=== PATIENT | female | born 1945 | race Caucasian/White ===

== ENCOUNTER → 2016-08-28 | Outpatient (CLI) | payer OTHER ==
[~2016-08-28] MED LIST: ASPI400T11 PO; CHOL100010 PO; CYAN10004 PO; OMEP20CA9 PO
--- NOTE | 2016-08-29 13:03 | MAMMOGRAPHY REPORT ---
BILATERAL DIGITAL SCREENING MAMMOGRAM WITH CAD: 08/28/2016 CLINICAL HISTORY: Routine screening. Patient has no complaints. TECHNIQUE: Bilateral CC and MLO views were obtained. Current study was also evaluated with a Comput er Aided Detection (CAD) system. COMPARISON: Comparison is made to exams dated: 08/23/2015 mammogram, 07/20/2014 mammogram, 07/17/2013 m ammogram, 12/14/2010 mammogram, 10/21/2009 mammogram - [facility], and 11/26/2007. BREAST COMPOSITION: There are scattered areas of fibroglandular density in both breasts. FINDINGS: There are scattered benign coarse calcifications in the breasts. A focal asymmetry in the upper outer quadrant of the right breast is unchanged mammographically dating back to at least 11/07, likely representing the patient's baseline. No new suspicious mass, architectural distortio n or cluster of microcalcifications is seen. IMPRESSION: ACR BI-RADS CATEGORY 1: NEGATIVE There is no mammographic evidence of malignancy. A 1 year screening mammogram is recommended. The p atient will receive written notification of the results. Approximately 10% of breast cancers are not detected with mammography. A negative mammographic repor t should not delay biopsy if a clinically suggestive mass is present. Rayna Keita M.D. ay/:08/28/2016 15:38:43 Calendar Control Clerk Blood Bank: Citlalli GARRETT(Fawad)(Juan R)(BD), [facility] letter sent: Normal /2 BI-RADS Code: ACR BI-RADS Category 1: Negative
== END | disposition home or self-care (01) ==
LOC: C.MAMM 13:08
PROVIDERS: ATTEND Internal Medicine Geriatric Medicine
DX: Z12.31 Encounter for screening mammogram for malignant neoplasm of breast (principal)

== ENCOUNTER → 2016-12-24 | Outpatient (CLI) | payer OTHER ==
[2016-12-24 16:31] LABS: BASO % 0.3 %; BASO ABS # 0.02 K/uL (0-0.2); COMPLETE YES; HEMATOCRIT 42.1 % (37-47); IG% 0.8 %; LYMPH % 23.9 %; LYMPH ABS # 1.57 K/uL (1.2-3.4); MEAN CELL VOLUME 86.4 fL (80-100); MEAN CORPUSCULAR HEMOGLOBIN 27.7 pg (25-34); MEAN CORPUSCULAR HGB CONC 32.1 g/dl (32-36); MEAN PLATELET VOLUME 11.3 fL (7.4-10.4); MONO % 5.9 %; NEUT % 67.1 %; PLATELET COUNT 209 K/uL (130-400); RED BLOOD COUNT 4.87 M/uL (4.2-5.4); WHITE BLOOD COUNT 6.56 K/uL (4.8-10.8)
[2016-12-24 16:38] LABS: BLOOD UREA NITROGEN 20 mg/dl (7-18); BUN/CREATININE RATIO 14.6 (10-20); CALCIUM 9.1 mg/dl (8.5-10.1); CARBON DIOXIDE 30 mmol/L (21-32); CHLORIDE 107 mmol/L (98-107); GLUCOSE 100 mg/dl (70-99); POTASSIUM 4.2 mmol/L (3.5-5.1); SODIUM 144 mmol/L (136-145)
[2016-12-24 16:48] LABS: CHOLESTEROL 188 mg/dl (0-200); CHOLESTEROL/HDL RATIO 2.7; HDL CHOLESTEROL 70 mg/dl; LDL CHOLESTEROL CALCULATED 55 mg/dl; TRIGLYCERIDES 314 mg/dl (0-150); VERY LOW DENSITY LIPOPROT CALC 63 mg/dl
== END | disposition home or self-care (01) ==
LOC: C.LAB 15:42
PROVIDERS: ATTEND Internal Medicine Geriatric Medicine
DX: E55.9 Vitamin D deficiency, unspecified (principal); E87.6 Hypokalemia; I65.29 Occlusion and stenosis of unspecified carotid artery; N39.9 Disorder of urinary system, unspecified; M19.90 Unspecified osteoarthritis, unspecified site; M85.80 Other specified disorders of bone density and structure, unspecified site; R03.0 Elevated blood-pressure reading, without diagnosis of hypertension

== ENCOUNTER → 2016-12-31 | Outpatient (CLI) | payer OTHER ==
[2016-12-31 13:34] LABS: BLOOD UREA NITROGEN 21 mg/dl (7-18); BUN/CREATININE RATIO 21.4 (10-20); CARBON DIOXIDE 29 mmol/L (21-32); CHLORIDE 108 mmol/L (98-107); CREATININE 0.98 mg/dl (0.60-1.20); GLUCOSE 86 mg/dl (70-99); SODIUM 144 mmol/L (136-145)
[2016-12-31 13:40] LABS: CALCIUM 9.5 mg/dl (8.5-10.1)
== END | disposition home or self-care (01) ==
LOC: C.LAB 12:40
PROVIDERS: ATTEND Internal Medicine Geriatric Medicine
DX: I65.29 Occlusion and stenosis of unspecified carotid artery (principal); R03.0 Elevated blood-pressure reading, without diagnosis of hypertension; E87.6 Hypokalemia

== ENCOUNTER → 2017-09-05 | Outpatient (CLI) | payer OTHER ==
--- NOTE | 2017-09-06 15:19 | MAMMOGRAPHY REPORT ---
BILATERAL DIGITAL SCREENING MAMMOGRAM TOMOSYNTHESIS WITH CAD: 09/05/2017 CLINICAL HISTORY: Routine screening. TECHNIQUE: Breast tomosynthesis in addition to standard 2D mammography was performed. Current study was also evaluated with a Computer Aided Detection (CAD) system. COMPARISON: Comparison is made to exams dated: 08/28/2016 mammogram, 08/23/2015 mammogram, 07/20/2014 m ammogram, 07/17/2013 mammogram, 06/12/2012 mammogram, and 11/30/2010 mammogram - [facility]ter. BREAST COMPOSITION: There are scattered areas of fibroglandular density in both breasts. FINDINGS: No suspicious mass, architectural distortion or cluster of microcalcifications is seen. T here is stable focal asymmetry in the upper outer posterior right breast. Scattered benign-appearing calcifications. IMPRESSION: ACR BI-RADS CATEGORY 1: NEGATIVE There is no mammographic evidence of malignancy. A 1 year screening mammogram is recommended. The pa tient will receive written notification of the results. Approximately 10% of breast cancers are not detected with mammography. A negative mammographic report should not delay biopsy if a clinically suggestive mass is present. Rayna Keita M.D. ay/:09/05/2017 17:12:03 Assembler Tractor: Camila GARRETT(R)(M), [facility] letter sent: Normal 1/2 BI-RADS Code: ACR BI-RADS Category 1: Negative
== END | disposition home or self-care (01) ==
LOC: C.MAMM 16:52
PROVIDERS: ATTEND Internal Medicine Geriatric Medicine
DX: Z12.31 Encounter for screening mammogram for malignant neoplasm of breast (principal)

== ENCOUNTER → 2017-11-18 | Outpatient (CLI) | payer OTHER ==
--- NOTE | 2017-11-18 17:04 | DIAGNOSTIC IMAGING REPORT ---
LEFT FOOT 3 VIEWS HISTORY: SWELLING OF FOOT JOINT, LEFT COMPARISON: None. FINDINGS: There is no fracture or dislocation. Mild soft tissue swelling at the first MTP joint. No erosions. Plantar and posterior calcaneal spurs. No radiopaque foreign bodies. IMPRESSION: Mild soft tissue swelling at the first MTP joint. No underlying erosions. Electronically signed by: Charles Cheng M.D. 11/18/2017 5:03 PM Dictated Date/Time: 11/18/2017 5:00 PM
== END | disposition home or self-care (01) ==
LOC: C.RAD 16:08
PROVIDERS: ATTEND Physician Assistant
DX: M25.475 Effusion, left foot (principal)

== ENCOUNTER 2023-10-26 06:16 | Observation (INO) ==
--- NOTE | 2023-09-13 11:30 | PAT Medication Instructions ---
Medication Instructions Date of Service September 13, 2023 Home Medications Medication Instructions Recorded apixaban 5 mg tablet (Eliquis) 5 mg PO BID #180 tabs 10/13/22 nystatin 100,000 unit/gram topical 1 applic topical BID PRN rash #60 02/21/23 powder grams Medication List: calcium carbonate 600 mg-vitamin D3 12.5 mcg (500 unit) capsule (Calcium 600 with Vitamin D3) 1 cap PO QAM metoprolol succinate 25 mg tablet,extended release 24 hr 25 mg PO UD apixaban 5 mg tablet (Eliquis) 5 mg PO BID omeprazole 20 mg capsule,delayed release 20 mg PO QAM nystatin 100,000 unit/gram topical powder 1 applic topical BID PRN rash cholecalciferol (vitamin D3) 25 mcg (1,000 unit) tablet (Vitamin D3) 25 mcg PO QAM furosemide 20 mg tablet 20 mg PO Q OTHER DAY rosuvastatin 5 mg tablet 5 mg PO QPM MEDICATION INSTRUCTIONS: Continue as directed nystatin 100,000 unit/gram topical powder 1 applic topical BID PRN rash (do not use after bathing prior to surgery) ASK your prescriber and surgeon apixaban 5 mg tablet (Eliquis) 5 mg PO BID (for spinal anesthesia: will need to hold Eliquis/apixaban at least 72 hours prior to surgery) DO NOT take the morning of surgery cholecalciferol (vitamin D3) 25 mcg (1,000 unit) tablet (Vitamin D3) 25 mcg PO QAM furosemide 20 mg tablet 20 mg PO Q OTHER DAY calcium carbonate 600 mg-vitamin D3 12.5 mcg (500 unit) capsule (Calcium 600 with Vitamin D3) 1 cap PO QAM Take morning of surgery With a small sip of water, OTHERWISE NOTHING TO EAT OR DRINK AFTER MIDNIGHT: metoprolol succinate 25 mg tablet,extended release 24 hr 25 mg PO UD omeprazole 20 mg capsule,delayed release 20 mg PO QAM Take evening before surgery metoprolol succinate 25 mg tablet,extended release 24 hr 25 mg PO UD rosuvastatin 5 mg tablet 5 mg PO QPM Other Notes If you have any questions please call us at [phone] or [phone] or [phone] or [phone]
--- NOTE | 2023-09-27 10:08 | Anesthesiology Consultation ---
Date of Service September 27, 2023 Assessment & Plan (1) Encounter for pre-operative examination: Plan - awaiting nuclear stress test and final cardiology clearance. - alcohol allergy, including topical alcohol. - lidocaine allergy: patient states was told by dentist it was suspected that injection was into bloodstream-states is unknown if this is a true allergy. Reports tachycardia, states her skin everywhere felt numb, she is unsure if she had rash. - Case discussed with Dr. Barrios who advised formal allergy testing for amides. Patient and surgeon's office aware. PCP is assisting coordination of referral. - chlorhexidine wipes packet states wipes are alcohol-free. Patient requested an additional set of wipes to trial at home with family. Additional set of wipes were provided, she plans to trial these during the day with family at home on different area than right knee. She will notify surgeon's office if any reaction. - cardiology office visit 05/30/23: "...occasionally feeling a little breathless...chest pain, and it seems to follow the heartbeat. No activity related chest pain...sodium restriction to 1,500 mg/day or less...start furosemide 20 mg by mouth 2-3 nonconsecutive days per week...recommend preoperative Lexiscan nuclear stress testing prior to elective knee intervention ..." Chart Review Chart Review: Pending: Refer to Additional Notes / Consult section and Patient seen in Pre Admission Testing Teaching & Discussion Pre-Anesthesia Teaching/Discussion Notes: Instructed NPO after midnight before surgery, except medications with 15 cc of water. Medication instructions provided according to the PAT guidelines. History Surgery Operation Date: 10/26/23 08:05 Proposed Procedures p Right Total Knee Arthroplasty - Berlin Khan, Height/Weight Height: 5 ft 5 in Weight: 93.3 kg Allergies Allergy/AdvReac Type Severity Reaction Status Date / Time alcohol Allergy Severe Dyspnea, Verified 09/26/23 11:22 respiratory reaction Penicillins Allergy Severe Dyspnea Verified 09/26/23 11:22 lidocaine Allergy Intermediate dentist Verified 09/27/23 10:18 informed patient had entered bloodstream Quinolones Allergy Intermediate Numbness Verified 09/26/23 11:22 moxifloxacin AdvReac Mild "Loopy" Verified 09/26/23 11:22 feeling Medications Home Medications Medication Instructions Recorded Confirmed Last Taken calcium carbonate 600 mg-vitamin 1 cap PO QAM 03/24/19 09/12/23 08/14/23 D3 12.5 mcg (500 unit) capsule (Calcium 600 with Vitamin D3) metoprolol succinate 25 mg 25 mg PO UD #90 tabs 06/06/21 09/12/23 08/14/23 tablet,extended release 24 hr apixaban 5 mg tablet (Eliquis) 5 mg PO BID #180 tabs 10/13/22 09/12/23 08/14/23 omeprazole 20 mg capsule,delayed 20 mg PO QAM 01/17/23 09/12/23 08/14/23 release nystatin 100,000 unit/gram topical 1 applic topical BID PRN rash #60 02/21/23 09/12/23 Unknown powder grams cholecalciferol (vitamin D3) 25 25 mcg PO QAM 09/12/23 09/12/23 Unknown mcg (1,000 unit) tablet (Vitamin D3) furosemide 20 mg tablet 20 mg PO Q OTHER DAY 09/12/23 09/12/23 Unknown rosuvastatin 5 mg tablet 5 mg PO QPM 09/12/23 09/12/23 Unknown Past Medical History Medical History (Updated 09/27/23 @ 10:31 by Karolyn Zhao PA-C) Bilateral lower extremity edema chronic, denies change or worsening-follows with cardiology Bladder tumor "pre-cancerous" lesion, surgically removed, under surveillance CKD (chronic kidney disease) stage 3, GFR 30-59 ml/min Follows with [facility] [place] nephrology Gastroesophageal reflux disease controlled, stable per pt History of COVID-19 2020; 2021- COVID PNA > resolved History of esophageal dilatation Mitral valve prolapse Hx rheumatic fever Osteopenia Paroxysmal atrial fibrillation Follows with [facility] cardio/Manny Cervantes Pulmonary hypertension mild Sleep apnea untreated 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 Exercise / Class Metabolic Activity II 4-5 Yardwork/Stairs/Walk up hill (ambulates with cane, denies chest discomfort or shortness of breath with 1 FOS) Past Family History Family History Father Alzheimer disease age 84 Mother Cerebral artery occlusion with cerebral infarction age 84 Type 2 diabetes mellitus Brother Prostate cancer Bladder cancer Atrial fibrillation Carotid artery disease Acute venous embolism and thrombosis of deep vessels of distal lower extremity Stroke Son Esophageal reflux Other No family history of adverse response to anesthesia Denies family history of Ovarian cancer Breast cancer Lung cancer Colorectal cancer Past Surgical History Surgical History H/O breast surgery open breast biopsy H/O colonoscopy with polypectomy H/O: hysterectomy + BSO (r/t endometriosis) History of appendectomy History of cholecystectomy History of esophagogastroduodenoscopy (EGD) History of laparoscopy x2 (prior to hysterectomy) History of tooth extraction Hx of cystoscopy benign papillary neoplasm Past Anesthesia History No Family Hx of Anesthesia Complications and Other (see above re: allergies) History of PONV No Hx of PONV and No Hx of Motion Sickness Social History Smoking Status: Never smoker Do You Dip or Chew Tobacco: No Hx Alcohol Use: No Hx Substance Use: No substance use type: does not use Review of Systems Patient denies chest pain, shortness of breath, dyspnea on exertion, fever, chills, cough, wheezing, or palpitations. Physical Exam Vital Signs Vitals BP 136/74 P 68 TEMP 98.5 SP02 96% on RA RESP 17 Physical Patient resting comfortably in chair in no acute distress, alert and oriented, responding appropriately throughout visit Full cervical extension range of motion without pain TMD 3.5 finger breadths Mallampati Score 3 Dentition: intact, denies chipped or loose teeth, caps/crowns, implants or bridges Lungs: normal respiratory effort. Good air movement, clear throughout to auscultation, no adventitious breath sounds Cardiac: irregularly irregular rhythm, no murmurs noted Carotid arteries: negative bruit bilat Lab Results Anesthesia Preop Results Results Anesthesia Widget: WBC 8.96 K/ul (4.8-10.8) 09/27/23 Hgb 13.4 g/dl (12.0-16.0) 09/27/23 Hct 40.9 % (37.0-47.0) 09/27/23 Plt 224 K/uL (130-400) 09/27/23 Na 139 mmol/L (136-145) 09/27/23 K 3.8 mmol/L (3.5-5.1) 09/27/23 Cl 106 mmol/L (98-107) 09/27/23 CO2 26 mmol/L (21-32) 09/27/23 BUN 22 mg/dl (6-23) 09/27/23 Creat 0.92 mg/dl (0.6-1.2) 09/27/23 Glucose Level 117 mg/dl (70-99(Fasting)) H 09/27/23 PT 11.6 Seconds (9.0-12.0) 09/27/23 PTT 31 Seconds (21-31) 09/27/23 INR 1.1 (0.9-1.1) 09/27/23 Blood Type O Positive 09/27/23 Antibody Screen NEGATIVE 09/27/23 Testing Laboratory Results Patient had epidural steroid injection left knee yesterday. Electrocardiogram Date: 11/22/22 Afib, rate 77 bpm Chest X-Ray Date: 09/27/23 Stable mild cardiomegaly. Otherwise, no acute process within the chest. Echocardiogram Date: 05/18/23 EF 50-54% Borderline diffuse LV hypokinesis Severely enlarged LA Mildly enlarged RA Mild aortic valve sclerosis without stenosis Moderate aortic valve regurgitation Mild mitral regurgitation Mild tricuspid regurgitation Mildly elevated PASP 42 mmHg Cervical Spine Date: 08/14/23 No acute cervical spine fracture or subluxation. Other Testing Cardiac event monitor 03/11/23 100% burden afib ranging 44-180 bpm avg 84 1 run of Vtach at 4 beats with max rate 174 bpm Occasional isolated VEs Rare VE couplets, VE triplets Ventricular bigeminy and trigeminy Carotid doppler 04/27/20 No evidence of hemodynamically significant carotid stenosis.
--- NOTE | 2023-10-25 13:21 | History & Physical Report ---
Date of Service October 25, 2023 Assessment & Plan (1) Localized osteoarthritis of right knee: We will proceed with a right total knee arthroplasty. Postoperatively she will be started on Eliquis for DVT prophylaxis and kept overnight in the hospital for postop medical management. She plans to have the hospital set up home health for discharge. History of Present Illness Chief Complaint: Osteoarthritis of the right knee. Primary Care Provider: Roxanne Nance MD Sonia is a pleasant 77-year-old female who has been dealing with chronic increasing bilateral knee pain. She has had years of injections of her knees. The injections are no longer helpful. She is having trouble doing daily activities and things she enjoys. X-rays and clinical examination been diagnostic for worsening osteoarthritis of the right knee. After failed conservative treatment, she has elected proceed with a right total knee arthroplasty. Allergies Allergy/AdvReac Type Severity Reaction Status Date / Time alcohol Allergy Severe Dyspnea, Verified 10/04/23 12:38 respiratory reaction Penicillins Allergy Severe Dyspnea Verified 10/04/23 12:38 lidocaine Allergy Intermediate dentist Verified 10/04/23 12:38 informed patient had entered bloodstream Quinolones Allergy Intermediate Numbness Verified 10/04/23 12:38 moxifloxacin AdvReac Mild "Loopy" Verified 10/04/23 12:38 feeling Home Medications Medication Instructions Recorded Confirmed Type calcium carbonate 600 mg-vitamin 1 cap PO QAM 03/24/19 10/04/23 History D3 12.5 mcg (500 unit) capsule (Calcium 600 with Vitamin D3) metoprolol succinate 25 mg 25 mg PO UD #90 tabs 06/06/21 10/04/23 History tablet,extended release 24 hr apixaban 5 mg tablet (Eliquis) 5 mg PO BID #180 tabs 10/13/22 10/04/23 Rx omeprazole 20 mg capsule,delayed 20 mg PO QAM 01/17/23 10/04/23 History release nystatin 100,000 unit/gram topical 1 applic topical BID PRN rash #60 02/21/23 10/04/23 Rx powder grams cholecalciferol (vitamin D3) 25 25 mcg PO QAM 09/12/23 10/04/23 History mcg (1,000 unit) tablet (Vitamin D3) furosemide 20 mg tablet 20 mg PO Q OTHER DAY 09/12/23 10/04/23 History rosuvastatin 5 mg tablet 5 mg PO QPM 09/12/23 10/04/23 History Past Med/Surg History Medical History Pulmonary hypertension mild Bilateral lower extremity edema chronic, denies change or worsening-follows with cardiology History of esophageal dilatation History of COVID-19 2020; 2021- COVID PNA > resolved Bladder tumor "pre-cancerous" lesion, surgically removed, under surveillance Mitral valve prolapse Hx rheumatic fever Sleep apnea untreated CKD (chronic kidney disease) stage 3, GFR 30-59 ml/min [place] [facility] [place] 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 Paroxysmal atrial fibrillation Follows with [facility] cardio/Manny Cervantes Osteopenia Gastroesophageal reflux disease controlled, stable per pt Surgical History H/O colonoscopy with polypectomy History of laparoscopy x2 (prior to hysterectomy) History of esophagogastroduodenoscopy (EGD) History of tooth extraction Hx of cystoscopy benign papillary neoplasm H/O breast surgery open breast biopsy H/O: hysterectomy + BSO (r/t endometriosis) History of cholecystectomy History of appendectomy Family History Father Alzheimer disease age 84 Mother Cerebral artery occlusion with cerebral infarction age 84 Type 2 diabetes mellitus Brother Prostate cancer Bladder cancer Atrial fibrillation Carotid artery disease Acute venous embolism and thrombosis of deep vessels of distal lower extremity Stroke Son Esophageal reflux Other No family history of adverse response to anesthesia Denies family history of Ovarian cancer Breast cancer Lung cancer Colorectal cancer Social History Smoking Status: Never smoker Second Hand Exposure: No; Do You Dip or Chew Tobacco: No; Tobacco Cessation Education Requested by Patient: No Hx Alcohol Use: No Hx Substance Use: No Preferred Language: Faroese Communication Ability: Effective Visual Impairment: Limited Hearing Ability: Normal Retail Event Assistant Required: No Beliefs That Will Affect Care: None marital status: Current Living Situation: Spouse and Family 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 Physical Exam Physical examination of the right knee, she has a slight valgus deformity. She is tender to palpation of the distal lateral femoral condyle into the lateral joint line.. Constitutional WD/WN, vitals as above Eyes PERRL, conjunctivae normal, anicteric sclerae ENMT external ear and nose normal, oropharynx normal Neck trachea midline, no thyromegaly Respiratory normal respiratory effort Cardiovascular RRR, no murmur, no edema Gastrointestinal (Abdomen) normal bowel sounds, soft, nontender, no hepatosplenomegaly Psychiatric A+Ox3, euthymic affect Results & Data Results & Data Laboratory Results . Diagnostic Findings X-rays of the right knee show some lateral compartment arthritis with joint space narrowing osteophyte formation and [id number] articulation PG Care Time/CCT Total # of Minutes Spent Total Time Spent with Patient: Total time spent is greater than 50% in coordination of care (as documented) at patient's floor/unit and/or counseling patient: Coding Level of Care Code None Diagnoses Localized osteoarthritis of right knee M17.11
[~2023-10-26 06:16] MED LIST changes: -ASPI400T11 PO; -CHOL100010 PO; -CYAN10004 PO; -OMEP20CA9 PO; +ceFAZolin 2000MG 2,000 MG/15 ML SYR IV SCH
[2023-10-26] MEDS ORDERED: ROPIVACAINE 0.5% 5 MG/ML 30 ML VIAL ONE (06:20)
--- NOTE | 2023-10-26 06:49 | History & Physical Bridge Note ---
Date of Service October 26, 2023 History & Physical Bridge Note I have examined the patient, reviewed the History & Physical and in the interval since the performance of the History & Physical I have noted the following changes of clinical significance: no changes noted
[2023-10-26] MEDS ORDERED: MIDAZOLAM HCL 1 MG/ML 2ML VIAL ONE (07:22)
[2023-10-26] MEDS ORDERED: PROPOFOL IV EMULSION 10 MG/ML 20 ML VIAL IV ONE (07:29)
[2023-10-26] MEDS: LR 500ML BOLUS, THEN 15ML/HR IV SCH (07:35)
[2023-10-26] MEDS: LR 60ML/HR IV SCH (07:35)
[2023-10-26] MEDS: ACETAMINOPHEN 500 MG TAB PO SCH ×2 (07:36→15:55)
[2023-10-26] MEDS: GABAPENTIN 300 MG CAP PO SCH (07:36)
[2023-10-26] MEDS: FAMOTIDINE 20 MG TAB PO SCH (07:36)
[2023-10-26] MEDS: dexAMETHasone**PF** 10 MG/ML VIAL IV SCH (07:36)
[2023-10-26] MEDS ORDERED: HYDROmorphone INJ 1 MG/ML SYRINGE IV PRN (07:39)
[2023-10-26] MEDS ORDERED: ePHEDrine sulfate 50 MG/ML AMP IV PRN (07:39)
[2023-10-26] MEDS ORDERED: ONDANSETRON INJ 2 MG/ML 2 ML VIAL IV PRN ×2 (07:39→11:00)
[2023-10-26] MEDS ORDERED: fentaNYL citrate PF 100 MCG/2 ML VIAL IV PRN (07:39)
[2023-10-26] MEDS ORDERED: ATROPINE SULFATE 0.1 MG/ML 10ML SYR IV PRN (07:39)
[2023-10-26] MEDS: TRANEXAMIC ACID 1,000 MG **IV Pre-op IV SCH (07:43)
[2023-10-26] MEDS: ceFAZolin 2000MG 2,000 MG/15 ML SYR IV ONE (07:57)
[2023-10-26] MEDS ORDERED: diphenhydrAMINE 50 MG/ML VIAL ONE (08:09)
[2023-10-26] MEDS: ROPIV 0.5% 246mg, Ketorolac 30mg, EPINEPHrine 0.5mg in NSS INFIL SCH (08:49)
[2023-10-26] MEDS: ORTHO JOINT ANESTHETIC ONE (08:49)
[2023-10-26] MEDS: TRANEXAMIC ACID 1,000 MG **IV Intra-op IV SCH (08:56)
--- NOTE | 2023-10-26 09:00 | Operative Report ---
PG Post Operative Report Pre & Post Diagnosis Operation Date: 10/26/23 08:00 Pre-Op Diagnosis: Degenerative Joint Disease Right Knee Post-Op Diagnosis: Degenerative Joint Disease Right Knee I identified the patient and participated in the time-out.: Yes Procedure Operation Date: 10/26/23 08:00 Actual Procedures p Right Total Knee Arthroplasty(Right) - Berlin Khan DO Surgeon Berlin Khan DO Warehouse Person Geoff Spears PA-C Estimated Blood Loss 30 Findings Consistent with Post-Op Diagnosis Specimens Right femoral tibial bone Description of Procedure Implants used: I used a Conrad Persona total knee arthroplasty system with a size 6 standard CR femur, D tibia, 31 oval patella, and a size 13 medial congruent polyethylene bearing. All components were cemented in place with Biomet cement. Sonia Cool arrived [facility] for the above procedure. She was seen in the preoperative holding area and the operative extremity was identified and signed. She was given a preoperative antibiotic, TXA, a spinal anesthetic and an adductor nerve block. She was taken back to the operating room and laid on the table in supine position. She was given basic sedation. The operative knee was then prepped and draped in sterile fashion. A timeout was done, and the patient and the operative extremity was properly identified. A midline incision was made directly over the patella. Dissection was taken down to the extensor mechanism. A midvastus arthrotomy was used. The medial retinaculum was released and the fat pad was mostly excised. The knee was flexed and the ACL, PCL, and meniscus were removed. A drill was sent down the center of the femoral canal followed by an intramedullary kulwant. Off that kulwant a distal femoral cutting block was placed. 9 mm was resected off the distal femur at 5 of valgus. A posterior referencing AP sizing guide was then placed on the distal femur. The femur measured to be a size 6. 2 drill holes were placed in 3 of external rotation. A 4-in-1 cutting block was then impacted into place. Anterior, posterior, and chamfer cuts were then made. The proximal tibia was then exposed. An external tibial alignment guide was placed. A tibial cut guide was then anchored in place and the proximal tibia was then resected. The posterior aspect of the knee was then opened up and any additional meniscus fragments and osteophytes were removed. The tibia measured to be a size D. The tibial plate was then placed in the appropriate rotation and the tibia was drilled and punched. Trial components were then placed. I used a size 13 medial congruent polyethylene insert. The knee was brought through a full range of motion and felt to be stable. The peg holes for the femoral component were then drilled. The patella was then everted and 9 mm was resected off the posterior aspect of the patella. The patella measured to be a size 31 oval. 3 peg holes were then drilled. A trial patella was placed. The knee was once again brought through a full range of motion and felt to be stable. Trial components were then removed. The surrounding soft tissues were injected with 100 cc of an orthopedic pain control cocktail. All components were then cemented into place with Biomet cement. The final polyethylene insert was then snapped into place. Once cement was dry the tourniquet was deflated. Hemostasis was obtained. A dilute betadyne lavage was then done for 3 minutes. The joint was then irrigated with normal saline solution. The midvastus ar throtomy was then closed with #1 Vicryl suture. The skin was closed with 2-0 Vicryl, 3-0V lock suture, and anmol. A soft compressive dressing was placed. She was then transferred to a hospital bed and taken to the postanesthesia care unit in stable condition. She tolerated the procedure well. Geoff Spears PA-C, was present for the entire procedure. He was critical for patient positioning, prepping, draping, retraction exposure, wound closure and application of sterile dressing. I attest to the content of the Intraoperative Record and any orders documented therein. Any exceptions are noted below.
--- NOTE | 2023-10-26 10:28 | XRay Report ---
XR knee RT 1 or 2V routine CLINICAL HISTORY: Postoperative evaluation. COMPARISON: Right knee radiographs August 14, 2023. FINDINGS: Alignment of the total right knee arthroplasty is anatomic. There is no periprosthetic fra cture or unexpected radiopaque foreign body. There are skin anmol. IMPRESSION: Expected findings following total right knee arthroplasty. ACT 112: Negative or not required by law. Electronically signed by: Mejia Martinez M.D. 10/26/2023 10:27 AM
--- NOTE | 2023-10-26 10:41 | Anesthesiology Progress Note ---
Date of Service October 26, 2023 Anesthesia Post Procedure Vital Signs Vital Signs: Temp Pulse Pulse Resp BP Pulse Ox O2 Del Method 10/26/23 10:30 70 16 128/52 L 95 Room Air 10/26/23 10:00 71 16 127/53 L 96 Room Air 10/26/23 09:50 36.4 C L 72 18 127/79 95 Room Air 10/26/23 09:40 77 14 121/67 92 Room Air 10/26/23 09:30 77 14 145/97 H 92 Room Air 10/26/23 09:23 36 C L 74 16 138/67 97 Oxymask 10/26/23 07:11 36.4 C L 95 H 18 136/58 L 98 Room Air O2 Flow Rate 10/26/23 10:30 10/26/23 10:00 10/26/23 09:50 10/26/23 09:40 10/26/23 09:30 10/26/23 09:23 4 10/26/23 07:11 Transfer of Care Handoff Completed per policy Notes Mental Status: alert / awake / arousable and participated in evaluation Patient Amnestic to Procedure: Yes Nausea / Vomiting: adequately controlled Pain: adequately controlled Airway Patency, RR, SpO2: stable & adequate BP & HR: stable & adequate Hydration State: stable & adequate Neuraxial Anesthesia: was administered and sensory block is resolving Anesthetic Complications: no major complications apparent and Pt Satisfied with anesthetic care Notes: pt c/o shanks and flashes in b/l peripheral eyes. VSS. pt reports has happened in past and gone away. pt says it is already starrting to resolve. she will let us know if it gets worse
[2023-10-26] MEDS ORDERED: traMADol HCL 50 MG TABLET PO PRN (11:00)
[2023-10-26] MEDS ORDERED: NALOXONE HCL 0.4 MG/1 ML VIAL/CARP IV PRN (11:00)
[2023-10-26] MEDS ORDERED: METOPROLOL SUCC 25MG EXT REL TAB PO SCH (11:00)
[2023-10-26] MEDS ORDERED: oxyCODONE HCL IR 5 MG TAB (IMMEDIATE RELEASE) PO PRN (11:00)
[2023-10-26] MEDS ORDERED: bisacodyL 10 MG SUPP PR PRN (11:00)
[2023-10-26] MEDS ORDERED: METOCLOPRAMIDE HCL INJ 5 MG/ML 2 ML VIAL IV PRN (11:00)
[2023-10-26] MEDS ORDERED: MAGNESIUM HYDROXIDE SUSP 30 ML UDC PO PRN (11:00)
[2023-10-26] MEDS ORDERED: HYDROmorphone INJ 0.5 MG/0.5 ML SYR IV PRN (11:00)
[2023-10-26] MEDS: FUROSEMIDE 20 MG TAB PO SCH (11:22)
[2023-10-26] MEDS: KETOROLAC TROMETHAMINE 15 MG/ML VIAL IV SCH (11:23)
[2023-10-26] MEDS: SODIUM CHLORIDE 0.9% 1,000 ML IV SCH (11:54)
[2023-10-26] MEDS: ceFAZolin 2000MG 2,000 MG/15 ML SYR IV SCH (15:55)
[2023-10-26] MEDS: SENNA 8.6 MG TAB PO SCH (21:01)
[2023-10-26] MEDS: DOCUSATE SODIUM 100 MG CAP PO SCH (21:01)
[2023-10-26] MEDS: ROSUVASTATIN CALCIUM 5 MG TAB PO SCH (21:01)
[2023-10-26] MEDS: METOPROLOL SUCC 25MG EXT REL TAB PO SCH (21:02)
--- OUTSIDE RECORDS SUMMARY | 2023-10-26 23:51 | External Medical Summary | Summary of Care ---
Author Name Unknown Organization [facility] Address [address] [facility] [place] [address] Phone [phone] Care Team Providers Care Gastroenterology Nurse Name Role Phone Berlin Lanza DO Primary Care Provider [phone] Encounter Details Date Type Department Care Team (Late st Contact Info) Description 10/22/2023 Orders Only Unspecified Department Manny Cervantes PA-C [address] [place] [id number] Allergies Active Allergy Reactions Criticality Noted Date Comments Moxifloxacin Hcl In Nacl Other (Please comment) 09/06/2007 Unreality type feeling Epinephrine Other (Please comment) 09/06/2007 Numbness, racing heart Ethanol 11/18/1997 Penicillins 11/18/1997 Sulfa Antibiotics 11/18/1997 Trimethoprim 11/18/1997 documented as of this encounter (statuses as of 10/22/2023) Medications Medication Sig Dispensed Refills Start Date End Date Status VITAMIN D 400 UNITS PO CAPS daily 0 Active NYSTOP 662011 UNIT/GM powder Apply topically to affected area 3 times a day as needed. 1 06/18/2017 Active apixaban (ELIQUIS) 5 MG Tablet Take 1 Tab by mouth 2 times a day. 180 Tab 3 01/07/2020 Active Acetaminophen 500 MG Oral Tablet Take 0.5 Tablets by mouth every other day. 0 Active Omeprazole 20 MG Oral Capsule Delayed Release (PriLOSEC) Take 1 Capsule by mouth in the morning. 0 11/22/2022 Active Furosemide 20 MG Oral Tablet (Lasix)Indications :Pulmonary hypertension (HCC),Fluid retention Take 1 Tablet by mouth once a day on Sunday, Sunday, and Sunday only. Take 20 mg by mouth 2-3 nonconsecutive days per week. 40 Tablet 3 05/30/2023 Active Potassium Chloride Yudith ER 10 MEQ Oral Tablet Extended ReleaseIndications :Pulmonary hypertension (HCC),Fluid retention Take 1 Tablet by mouth once a day on Sunday, Sunday, and Sunday only. 40 Tablet 3 05/30/2023 Active Metoprolol Succinate ER 25 MG Oral Tablet Extended Release 24 Hour (toPROL XL)Indications:Chr onic atrial fibrillation (HCC) Take 1.5 tablets by mouth in the morning and 1 tablet by mouth in the evening. 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 BENIGN NEOPLASM LG BOWEL Diaphragmatic hernia Idiopathic scoliosis Irritable bowel syndrome PELV PERIT ENDOMETRIOSIS ABN PAP SMEAR-CERVIX Mitral valve disorder DIVERTICULOSIS OF COLON Cardiac dysrhythmia, unspecified documented as of this encounter (statuses as of 10/22/2023) Social History Tobacco Use Types Packs/Day Years Used Date Smoking Tobacco: Never Smokeless Tobacco: Never Alcohol Use Standard Drinks/Week Comments No 0 (1 standard drink = 0.6 oz pur e alcohol) Sex and Gender Information Value Date Recorded Sex Assigned at Not on file Gender Identity Not on file Sexual Orientation Not on file Job Start Date Occupation Industry Not on file Not on file Not on file documented as of this encounter Plan of Treatment Health Maintenance Due Date Last Done Comments Depression Screening 1957 Hepatitis C Screening 09/10/1965 DTaP,Tdap,and Td Vaccines (1 - Tdap) 04/24/2000 04/23/2000, 04/23/2000 Pneumococcal Vaccine: 65+ Years (1 of 1 - PCV) 09/10/2012 Zoster Vaccines (2 of 2) 04/08/2018 02/11/2018 COVID-19 Vaccine (1 - 2022-2 4 season) 2023 Influenza Vaccine (FLU shot) (Season Ended) 2024 DXA Scan 02/20/2029 02/20/2022 Colonoscopy Discontinued 12/11/2001 Colorectal Cancer Screening Discontinued Cologuard Discontinued Fecal Occult Blood Test Discontinued GARDASIL-HPV IMMUNIZATION SERIES Aged Out No longer eligible based on patient's age to complete this topic Hepatitis B Aged Out No longer eligi ble based on patient's age to complete this topic MENINGOCOCCAL (MENACTRA/MENVEO) Aged Out No longer eligible based on patient's age to complete this topic Sigmoidoscopy Discontinued documented as of this encounter Medical Devices Not on filedocumented as of this encounter Procedures Procedure Name Priority Date/Time Associated Diagnosis Comments NM MYOCARDIAL PERFUSION IMAGING SPECT MULTIPLE STUDIES WITH PHARMACOLOGIC INTERVENTION Routine 10/22/2023 7:32 AM EDT documented in this encounter Results * NM MYOCARDIAL PERFUSION IMAGING SPECT MULTIPLE STUDIES WITH PHARMACOLOGIC INTERVENTION (10/22/2023 7:32 AM EDT) 10/22/2023 7:32 AM EDT Manny Cervantes PA-C RAD NUCLEAR MED Performing Organization Address City/State/[facility] [place] Phone Number [facility] documented in this encounter Care Teams Gastroenterology Nurse Relationship Specialty Start Date End Date Berlin Lanza DO [address] [place] [address] PCP - General Family Medicine 05/01/20 documented as of this encounter
--- OUTSIDE RECORDS SUMMARY | 2023-10-26 23:51 | External Medical Summary | Summary of Care ---
Author Name Unknown Organization [facility] Address [address] [facility] [place] [address] Phone [phone] Care Team Providers Care Community Engagement Coordinator Name Role Phone Berlin Lanza DO Primary Care Provider [phone] [phone] Reason for Visit * Reason Onset Date Comments Test Results 10/25/2023 Encounter Details Date Type Department Care Team (Late st Contact Info) Description 10/25/2023 Telephone [address]iology, [facility] [address] [place] [address] Manny Cervantes PA-C [address] [place] [address] Test Results Allergies Active Allergy Reactions Criticality Noted Date Comments Moxifloxacin Hcl In Nacl Other (Please comment) 09/06/2007 Unreality type feeling Epinephrine Other (Please comment) 09/06/2007 Numbness, racing heart Ethanol 11/18/1997 Penicillins 11/18/1997 Sulfa Antibiotics 11/18/1997 Trimethoprim 11/18/1997 documented as of this encounter (statuses as of 10/25/2023) Medications Medication Sig Dispensed Refills Start Date End Date Status VITAMIN D 400 UNITS PO CAPS daily 0 Active NYSTOP 966656 UNIT/GM powder Apply topically to affected area [...] as of this encounter (statuses as of 10/25/2023) Active Problems Problem Noted Date Diagnosed Date [...] as of this encounter (statuses as of 10/25/2023) Social History Tobacco Use Types Packs/Day Years [...] on file documented as of this encounter Miscellaneous Notes * Telephone Encounter - Seun Nolasco LPN - 10/25/2023 8:14 AM EDT Called and informed patient of Manny's message. Patient verbalized understanding. ----- Message from Manny Cervantes PA-C sent at 10/22/2023 5:34 PM EDT ----- October 22, 2023 Brandy Interpretation Summary (as per Dr. Resendez): The combined low intensity exercise/pharmacologic myocardial perfusion imaging study is normal without evidence of scar or inducible ischemia. Atrial fibrillation persisted throughout the study. Gated SPECT imaging reveals normalmyocardial thickening and wall motion. The left ventricular ejection fraction was calculated to be 64%. Stress test OK. OK for procedure. See recommendations documented in the telephone encounter dated July 26, 2023. documented in this encounter Plan of Treatment Health Maintenance [...] Not on filedocumented as of this encounter Care Teams Community Engagement Coordinator Relationship Specialty Start Date End Date Berlin Lanza DO [address] [facility] [address] [place] [address] PCP - General Family Medicine 05/01/20 documented as of this encounter
--- OUTSIDE RECORDS SUMMARY | 2023-10-26 23:51 | External Medical Summary | Summary of Care ---
Author Name Unknown Organization [facility] Address [address] [place] [facility] [address] Phone [phone] Care Team Providers Care Edi Architect Name Role Phone Berlin Lanza DO Primary Care Provider [phone] [phone] Reason for Visit * Reason Onset Date Comments Test Results 10/19/2023 Encounter Details Date Type Department Care Team (Late st Contact Info) Description 10/19/2023 Telephone Cardiology, [facility] [address] [place] [address] Manny Ceravntes PA-C [address] [place] [address] Test Results Allergies Active Allergy Reactions Criticality Noted Date Comments Moxifloxacin Hcl In Nacl Other (Please comment) 09/06/2007 Unreality type feeling Epinephrine Other (Please comment) 09/06/2007 Numbness, racing heart Ethanol 11/18/1997 Penicillins 11/18/1997 Sulfa Antibiotics 11/18/1997 Trimethoprim 11/18/1997 documented as of this encounter (statuses as of 10/19/2023) Medications Medication Sig Dispensed Refills Start Date End Date Status VITAMIN D 400 UNITS PO CAPS daily 0 Active NYSTOP 635337 UNIT/GM powder Apply topically to affected area [...] as of this encounter (statuses as of 10/19/2023) Active Problems Problem Noted Date Diagnosed Date [...] as of this encounter (statuses as of 10/19/2023) Social History Tobacco Use Types Packs/Day Years [...] encounter Miscellaneous Notes * Telephone Encounter - Milena Lombardo CMA - 10/19/2023 9:07 AM EDT Letter mailed. * Telephone Encounter - Milena Lombardo CMA - 10/19/2023 9:07 AM EDT ----- Message from Manny Cervantes PA-C sent at 10/18/2023 4:17 PM EDT ----- October 18, 2023 TTE Interpretation Summary (as per Dr. Resendez): There was rate controlled atrial fibrillation during the examination. There is borderline diffuse left ventricular hypokinesis. The qualitative LV ejection fraction is 50-54% (normal). The left atrium is severely enlarged. Mild aorticvalve regurgitation is present. Mild mitral regurgitation is present. Mild tricuspid regurgitation is present. The estimated pulmonary artery systolic pressure is 29 mm Hg (normal). Compared to the report of the previous study dated 05/18/2023, there has been interval decline in the estimated pulmonary artery systolic pressure and the estimated right atrial pressure. Echo looks OK. Only mild valve issues, and pulmonary pressures have improved! Continue as prescribed. documented in this encounter Plan of Treatment Upcoming Encounters Date Type Department Care Team (Late st Contact Info) Description 10/22/2023 7:30 AM EDT Imaging [facility] 2nd Floor Cardiology, [place] [address] [place] [address] Gw, Excess Time Radiology [address] [place] [address] Health Maintenance Due Date Last Done Comments [...] filedocumented as of this encounter Care Teams Edi Architect Relationship Specialty Start Date End Date Berlin Lanza DO [address] [facility] [address] [place] [address] PCP - General Family Medicine 05/01/20 documented as of this encounter
--- OUTSIDE RECORDS SUMMARY | 2023-10-26 23:51 | External Medical Summary | Summary of Care ---
Author Name Unknown Organization [facility] Address [address] [place] [facility] [place] [address] Phone [phone] Care Team Providers Care Featheredger And Reducer Machine Name Role Phone Berlin Lanza DO Primary Care Provider [phone] [phone] Reason for Visit * Reason Onset Date Comments Medication Refill 10/24/2023 Encounter Details Date Type Department Care Team (Late st Contact Info) Description 10/24/2023 Refill Cardiology, [facility] [address] [place] [id number] Robyn Cervantes PA-C [address] [place] [address] Chronic atrial fibrillation (HCC)* Allergies Active Allergy Reactions Criticality Noted Date [...] UNITS PO CAPS daily 0 Active NYSTOP 344915 UNIT/GM powder Apply topically to affected area 3 times a day as needed. 1 06/18/2017 Active Acetaminophen 500 MG Oral Tablet Take 0.5 Tablets by mouth every other day. 0 Active Omeprazole 20 MG Oral Capsule Delayed Release (PriLOSEC) Take 1 Capsule by mouth in the morning. 0 11/22/2022 Active Furosemide 20 MG Oral Tablet (Lasix)Indication s:Pulmonary hypertension (HCC),Fluid retention Take 1 Tablet by mouth once a day on Sunday, Sunday, and Sunday only. Take 20 mg by mouth 2-3 nonconsecutive days per week. 40 Tablet 3 05/30/2023 Active Potassium Chloride Yudith ER 10 MEQ Oral Tablet Extended ReleaseIndication s:Pulmonary hypertension (HCC),Fluid retention Take 1 Tablet by mouth once a day on Sunday, Sunday, and Sunday only. 40 Tablet 3 05/30/2023 Active Metoprolol Succinate ER 25 MG Oral Tablet Extended Release 24 Hour (toPROL XL)Indications:Ch ronic atrial fibrillation (HCC) Take 1.5 tablets by mouth in the morning and 1 tablet by mouth in the evening. 250 Tablet 1 08/23/2023 Active Apixaban 5 MG Oral Tablet (Eliquis)Indicati ons:Chronic atrial fibrillation (HCC) Take 1 Tablet by mouth in the morning and 1 Tablet before bedtime. 180 Tablet 3 10/25/2023 Active apixaban (ELIQUIS) 5 MG Tablet Take 1 Tab by mouth 2 times a day. 180 Tab 3 01/07/2020 10/24/19 24 Discontinu ed(Refill) documented as of this encounter (statuses as [...] encounter Miscellaneous Notes * Telephone Encounter - Robyn Cervantes PA-C - 10/25/2023 8:52 AM EDTSigned Prescriptions: Disp Refills Apixaban 5 MG Oral Tablet (Eliquis) 180 Ta*3 Sig: Take 1 Tablet by mouth in the morning and 1 Tablet before bedtime. Authorizing Provider: ROBYN CERVANTES * Telephone Encounter - Zita Santos CMA - 10/25/2023 8:04 AM EDTPending Prescriptions: Disp Refills Apixaban 5 MG Oral Tablet (Eliquis) 180 Ta*3 Sig: Take 1 Tablet by mouth in the morning and 1 Tablet before bedtime. * Telephone Encounter - Aimee Miller employment trainer - 10/24/2023 3:58 PM EDT Pt advised pcp did write last refill asking for cardio to write. Pc p is not responding, pt will behaving surgery Sunday. And will be off for 3 days before. Pt is asking for 30 days. Did you pend patient's preferred pharmacy and medication before forwarding?yes Pharmacy: [id number] [id number] [address] [place] Pending Prescriptions: Disp Refills Apixaban 5 MG Oral Tablet (Eliquis) 60 Ta*11 Sig: Take 1 Tablet by mouth in the morning and 1 Tablet before bedtime. Last Visit: 05/30/2023 (in office), Visit date not found (telemedicine) Next Visit: Visit date not found If no future appointments scheduled, and last appointment is greater than a year ago, please schedule patient for a follow-up appointment Last date the medication was ordered: 01/07/20 Is this request for a controlled substance?No Urine Drug Screen:No results found for this or any previous visit. Patient Phone Numbers Labs: Lab Results Component Value Date/Time CREAT 1.0 03/08/2023 09:25 AM CREAT 0.95 02/21/2023 12:00 AM CREAT 0.9 11/23/2004 08:52 AM CREAT 0.8 10/23/1996 04:00 PM POTASSIUM 4.4 03/08/2023 09:25 AM POTASSIUM 4.1 02/21/2023 12:00 AM POTASSIUM 4.4 11/23/2004 08:52 AM POTASSIUM 4.0 10/23/1996 04:00 PM TSH 0.66 03/08/2023 09:25 AM TSH 2.62 11/23/2004 08:52 AM LDLCALC 85 02/21/2023 12:00 AM LDLCALC 103 11/23/2004 08:52 AM LDLDIRECT 126 11/23/2004 08:52 AM ALT 12 11/23/2004 08:52 AM ALT 9 (L) 10/23/1996 04:00 PM HGBA1C 5.6 02/21/2023 12:00 AM * Telephone Encounter - Beverley Wiggins PHARM Tech - 10/24/2023 3:54 PM EDT Pt calling in for refill on med from cardio. Transferred to specialty for assistance. Thank You, Beverley Wiggins CPhT Mini Bar Attendant II [facility] (Former[facility]) 10/24/2023, 3:55 PM documented in this encounter Plan of Treatment [...] Not on filedocumented as of this encounter Visit Diagnoses Diagnosis Chronic atrial fibrillation (HCC)- Primary Atrial fibrillation documented in this encounter Care Teams Featheredger And Reducer Machine Relationship Specialty Start Date End Date Berlin Lanza DO [address] [facility] [address] [place] [address] PCP - General Family Medicine 05/01/20 documented as of this encounter
[2023-10-27] MEDS: PANTOprazole 40 MG TAB PO SCH (08:15)
[2023-10-27] MEDS: METOPROLOL SUCC 25MG EXT REL TAB PO SCH (08:16)
[2023-10-27] MEDS: MULTIVITAMIN TAB PO SCH (08:16)
[2023-10-27] MEDS: dexAMETHasone 4 MG TAB PO SCH (08:17)
[2023-10-27] MEDS: APIXABAN 5 MG TABLET PO SCH (08:17)
--- NOTE | 2023-10-27 08:26 | Orthopedic Progress Note ---
Date of Service October 27, 2023 Assessment & Plan (1) Status post right knee replacement: Overall she is doing very well. She is not having much pain in the right knee. She will be seen by physical therapy today for ambulation and range of motion exercises. She is on Eliquis for DVT prophylaxis. She can be discharged home later today. She will follow-up orthopedics in 2 weeks. Subjective Sonia was seen and examined at bedside this morning. Overall she is doing very well. She is not having much pain in the right knee. She is been up and ambulating to the bathroom. She has no complaints.. Review of Systems All systems reviewed & are unremarkable except as noted in HPI & below. Physical Exam On physical examination of the right knee, the dressing is clean and dry. Her leg is out full tension. She is active dorsiflexion plantarflexion of her right ankle.. Results & Data Results & Data Laboratory Results . Diagnostic Findings Postoperative x-rays of the right knee show the prosthesis to be in anatomic alignment without any evidence of fracture complication, or loosening.. PG Care Time/CCT Total # of Minutes Spent Total Time Spent with Patient: Total time spent is greater than 50% in coordination of care (as documented) at patient's floor/unit and/or counseling patient: Coding Level of Care Code 96269 Post Operative Follow-Up Diagnoses Status post right knee replacement Z96.651
--- NOTE | 2023-10-27 08:27 | Discharge Summary ---
Date of Service October 27, 2023 Admission HPI (Per Admitting) Sonia is a pleasant 77-year-old female who has been dealing with chronic increasing bilateral knee pain. She has had years of injections of her knees. The injections are no longer helpful. She is having trouble doing daily activities and things she enjoys. X-rays and clinical examination been diagnostic for worsening osteoarthritis of the right knee. After failed conservative treatment, she has elected proceed with a right total knee arthroplasty. Admission Exam (Per Admitting) Physical examination of the right knee, she has a slight valgus deformity. She is tender to palpation of the distal lateral femoral condyle into the lateral joint line.. Principal Diagnosis Same as "Discharge Diagnosis" noted below under Discharge Instructions. Discharge Exam On physical examination of the right knee, the dressing is clean and dry. Her leg is out full tension. She is active dorsiflexion plantarflexion of her right ankle.. Discharge Data Procedures Performed Operation Date: 10/26/23 08:00 Actual Procedures p Right Total Knee Arthroplasty(Right) - Berlin Khan DO Ordered Studies 10/26/23 05:00 US - OR guided needle placemen Routine Hospital Course (1) Status post right knee replacement: On October 26, 2023 Sonia arrived at [facility] and underwent a right knee replacement without complication. She had a spinal anesthetic. Postoperatively she was started on Eliquis for DVT prophylaxis and transferred to the general orthopedic floors. Her hospital course was uneventful. On postop day #1, her vital signs were stable and her pain was well-controlled. She was able to participate well with physical therapy doing ambulation and r sherley of motion exercises. She was then discharged home. She will follow-up orthopedics in 2 weeks. PG Care Time/CCT Total # of Minutes Spent Total Time Spent with Patient: Total time spent is greater than 50% in coordination of care (as documented) at patient's floor/unit and/or counseling patient: Discharge Plan Discharge Items Patient Disposition: Home - Self-Care Reason For Visit: Degenerative Joint Disease Right Knee Discharge Diagnosis: Right knee replacement Activity: As commented below Non-emergency contact: Surgeon Call non-emergency contact if: your wound has increased redness and your wound has increased drainage Follow-up/Referrals: Roxanne Nance MD [Primary Care Provider] - Diet: Regular Addtl Attending Provider Instructions: Activity and Therapy Recommendations: * If you are using [facility] then therapy will be provided at your home until they feel you have accomplished all of your goals. * If you are using [facility] then Physical Therapy will be provided until they feel you are ready to start Outpatient Physical Therapy. * If you are not using home therapy then Outpatient Physical Therapy should start about 3-5 days from your day of surgery. Therapy will last about 6-10 weeks * It is important not to put a pillow under your knee when you are relaxing or sleeping. It is just as important to make sure you are getting your knee perfectly straight as it is to regain your knee bend. * You were shown a series of exercises in the hospital. Do these exercises three times each day including the exercises you were shown in physical therapy. * Get up and walk several times each day. For the first four weeks, try not to stand or walk for more than one hour at a time. If you do stand or walk for more than one hour, you will not hurt anything, but your leg will likely swell. * As you feel comfortable, you may change from the walker or crutches to a cane and then to independent walking. Medications: * Narcotic You will likely be sent home from the hospital with a prescription for the narcotic pain medication that worked best throughout your stay. * Cefadroxil -take the antibiotic twice a day for 10 days to help prevent infection. * Eliquis -continue your Eliquis as prescribed. * Other medications may be prescribed for specific circumstances. If you have any questions, please call the office at . * Resume previous home medications unless otherwise instructed TEDs/Elastic Stockings: The white elastic stockings help limit swelling and prevent blood clots from forming in your legs.~ The more you wear them, the more they work. Wear them for six weeks. Dressing Care: The dressing can be changed after physical therapy on postop day #1. Daily dry dressing changes for a few days, especially if the incision is still draining some. If the incision is not draining then you may leave the anmol open to air. If there is a little bit of drainage or if the anmol are getting stuck on your clothing then cover the incision with a dry dressing. The anmol will be removed at your 2 week follow-up appointment. Showering: You may shower 5 days from the day of surgery as long as the incision is no longer draining. You may shower with the anmol exposed. Let soapy water run over the anmol and pat them dry. Do not scrub or soak the incision. Things To Watch For: * Drainage from the incision site that occurs more than one week after your surgery. * Increased redness at the incision site. * Fever above 102 degrees Fahrenheit. * Unusual chest pain or shortness of breath. * Call [facility] at with any of the above problems Follow-Up Visit: Follow-up with Dr. Khan's PA (Berlin Cameron) 2-3 weeks after your day of surgery. He will remove your anmol and answer any questions. If you have any additional questions or concerns, Dr Khan is usually in the office at the same time and will be available An appointment was probably scheduled when you signed-up for surgery in the office. If you have any questions call Office Instructions: More detailed instructions as well as Frequently Asked Questions were provided in a folder by our office when you signed-up for surgery. Please review these instructions when you get home. If you have any further questions or concerns, please feel free to call the office at [phone] Pending Studies at Discharge: No Stand-Alone Forms: My [facility], Smoking Cessation Medications and DC Order Prescriptions: New oxycodone 5 mg Tablet 5 mg PO Q4H PRN (Reason: pain) Qty: 30 0RF cefadroxil 500 mg capsule 500 mg PO BID 10 Days Qty: 20 0RF Continued Eliquis 5 mg tablet 5 mg PO BID Qty: 180 3RF nystatin 100,000 unit/gram powder 1 applic topical BID PRN (Reason: rash) Qty: 60 3RF metoprolol succinate 25 mg tablet extended release 24 hr 25 mg PO UD Qty: 90 Rx Instructions: 1.5 tabs am, 1 tablet in evening calcium carbonate-vitamin D3 [Calcium 600 with Vitamin D3] 600 mg(1,500mg) - 500 unit capsule 1 cap PO QAM Patient Comments: caltrate 600mg cholecalciferol (vitamin D3) [Vitamin D3] 25 mcg (1,000 unit) Tablet 25 mcg PO QAM furosemide 20 mg tablet 20 mg PO Q OTHER DAY rosuvastatin [Crestor] 5 mg tablet 5 mg PO QPM omeprazole 20 mg capsule,delayed release(DR/EC) 20 mg PO QAM Discharge Orders: Discharge Order (Routine); Ordered 10/27/23 Ordered By: Berlin Khan Admission Data Admit Date/Time: 10/26/23 09:31 Attending Provider: Berlin Khan Admit Provider: Berlin Khan Primary Care Provider: Roxanne Nance
== END 2023-10-27 10:59 | disposition home or self-care (01) ==
LOC: 3E 06:16 → ASU 06:16